=== PATIENT | female | born 1970 | race American Indian/Alaskan Native ===

== ENCOUNTER 2016-06-08 08:33 | Emergency (ER) | payer SELFPAY ==
[2016-06-08 08:48] VITALS: BP 207/119
[2016-06-08 09:16] LABS: Basophils % (Auto) 0.3 % (0.0-1.8); Eosinophils % (Auto) 4.3 % (0.0-4.3); Hematocrit 37.4 % (30.3-42.9); Mean Corpuscular HGB Conc 32 % (30-34); Mean Corpuscular Hemoglobin 27 pg (28-32); Mean Corpuscular Volume 84 fl (79-97); Platelet Count 213 K/mm3 (140-440); Red Blood Count 4.44 M/mm3 (3.65-5.03); Red Cell Distribution Width 14.5 % (13.2-15.2); White Blood Count 6.2 K/mm3 (4.5-11.0)
[2016-06-08 09:28] LABS: Anion Gap 18 mmol/L; BUN/Creatinine Ratio 14.44; Blood Urea Nitrogen 13 mg/dL (7-17); Carbon Dioxide 27 mmol/L (22-30); Chloride 99.5 mmol/L (98-107); Glucose 99 mg/dL (65-100); Potassium 4.2 mmol/L (3.6-5.0); Sodium 140 mmol/L (137-145)
--- NOTE | 2016-06-12 05:53 | ED Elopement Review ---
ED Pt Elopement review - Results review Lab results: Laboratory Tests 06/08/16 06/08/16 06/08/16 09:00 09:00 09:00 WBC 6.2 RBC 4.44 Hgb 12.0 Hct 37.4 MCV 84 MCH 27 L MCHC 32 RDW 14.5 Plt Count 213 Lymph % (Auto) 34.4 Gem % (Auto) 10.4 H Eos % (Auto) 4.3 Baso % (Auto) 0.3 Lymph # 2.1 Gem # 0.6 Eos # 0.3 Baso # 0.0 Seg Neutrophils % 50.6 Seg Neutrophils # 3.2 Sodium 140 Potassium 4.2 Chloride 99.5 Carbon Dioxide 27 Anion Gap 18 BUN 13 Creatinine 0.9 Estimated GFR > 60 BUN/Creatinine Ratio 14.44 Glucose 99 Calcium 9.0 Troponin T < 0.010 HCG, Qual Negative 06/08/16 11:48 WBC RBC Hgb Hct MCV MCH MCHC RDW Plt Count Lymph % (Auto) Gem % (Auto) Eos % (Auto) Baso % (Auto) Lymph # Gem # Eos # Baso # Seg Neutrophils % Seg Neutrophils # Sodium Potassium Chloride Carbon Dioxide Anion Gap BUN Creatinine Estimated GFR BUN/Creatinine Ratio Glucose Calcium Troponin T < 0.010 HCG, Qual - Call Back decision Pt Call Back Decision: No action required
== END 2016-06-09 | disposition left against medical advice (07) ==
LOC: ED 08:33
DX: R51 Headache (principal); M79.601 Pain in right arm; R07.89 Other chest pain; Z53.21 Procedure and treatment not carried out due to patient leaving prior to being seen by health care provider
CPT/HCPCS: 36415; 80048; 84484; 84703; 85025; 93005; 93010